=== PATIENT | male | born 1980 | race Caucasian/White ===

== ENCOUNTER 2024-07-03 09:24 | Inpatient (IN) | payer BC ==
[~2024-07-03] VITALS: Ht 175.3 cm; Wt 128.0 kg
[2024-07-03] VITALS (461 sets, daily range): BP systolic 122–152; BP diastolic 65–101; PULSE 86–121; TEMP 97.5–98; O2SAT 44–100
[~2024-07-03 09:24] MED LIST: ANTIINFLAMMATORY MED; MEPERIDINE HCL50 MG PO; MOBIC15 MG PO; VICODIN 5/5001 UDTAB PO
[2024-07-03] MEDS ORDERED: Ondansetron 4 MG/2 ML VIAL IV ONE (09:45)
[2024-07-03] MEDS ORDERED: NS 1,000 ML IV ONE (09:45)
[2024-07-03] MEDS ORDERED: dexAMETHasone 10 MG/ML VIAL IV ONE (09:45)
[2024-07-03] MEDS ORDERED: Meclizine 25 MG TAB PO ONE (09:45)
[2024-07-03 10:16] LABS: ALBUMIN 4.3 g/dL (3.5-5.0); BILIRUBIN,TOTAL 0.4 mg/dL (0.2-1.2); CALCIUM 9.4 mg/dL (8.4-10.2); CREATININE, serum 1.28 mg/dL (0.72-1.25); MAGNESIUM 1.7 mg/dL (1.6-2.6); POTASSIUM 3.4 mEq/L (3.5-4.5); TOTAL PROTEIN 7.6 g/dl (6.2-8.1)
[2024-07-03 10:21] LABS: HEMATOCRIT 47.5 % (42.0-52.0); MEAN CELL VOLUME 86 fl (80.0-100.0); MEAN CORPUSCULAR HEMOGLOBIN 29 pg (27-31); MEAN CORPUSCULAR HGB CONC 34 g/dl (33.0-37.0); MEAN PLATELET VOLUME 9.4 fl (7.4-10.4); PLATELET COUNT 331 K/mm3 (130-400); RED BLOOD COUNT 5.51 M/mm3 (4.20-5.60); REDCELL DISTRIBUTION WIDTH-CV 12.9 % (11.5-14.5)
[2024-07-03] MEDS ORDERED: dilTIAZem 25 MG/5 ML VIAL IV ONE (10:30)
[2024-07-03 11:00] LABS: BAND 3 % (0-10); EOSINOPHIL 3 % (0-4); LYMPHOCYTE 36 % (20.0-51.0); NEUTROPHILS 52 % (42.0-75.2); PLATELET ESTIMATE NORMAL (NORMAL)
[2024-07-03] MEDS ORDERED: Iohexol 300 - 100 ML VIAL IV ONE (11:25)
[2024-07-03] MEDS ORDERED: Enoxaparin 120 MG/0.8 ML SYRINGE SQ ONE (12:30)
[2024-07-03] MEDS ORDERED: Ondansetron 4 MG/2 ML VIAL IV PRN (12:30)
[2024-07-03] MEDS ORDERED: Acetaminophen 325 MG TAB PO PRN (12:30)
--- NOTE | 2024-07-03 12:59 | NUR ---
PATIENT ARRIVED FROM ER. SAAD TEE GAVE BEDSIDE REPORT. PATIENT TRANSFERRED FROM ER STRETCHER TO ICU BED. PATIENT HOOKED UP TO VITALS AND TELEMETRY MACHINE. PATIENT RESTING COMFORTABLY WITH AT BEDSIDE. BED IN LOW, CALL LIGHT WITHIN REACH.
[2024-07-03] MEDS ORDERED: 1/2 NS 1,000 ML IV SCH (13:00)
[2024-07-03] MEDS ORDERED: Magnesium Sulfate 4% 50 ML IV ONE (13:15)
[2024-07-03] MEDS ORDERED: Lidocaine PF 2% (20 MG/ML) 5 ML VIAL ONE (13:56)
[2024-07-03 14:05] LABS: COLLECTION METHOD CLEAN CATCH
[2024-07-03 14:14] LABS: URINE APPEARANCE CLEAR (CLEAR/HAZY); URINE COLOR YELLOW (YELLOW)
[2024-07-03 14:15] LABS: URINE BLOOD TRACE-INTACT (NEGATIVE); URINE GLUCOSE NEGATIVE (NEGATIVE); URINE KETONE Negative (NEGATIVE); URINE PROTEIN(semi-quant) NEGATIVE (BEGATIVE)
[2024-07-03 14:16] LABS: URINE NITRATE NEGATIVE (NEGATIVE); URINE UROBILINOGEN 0.2 E.U/dL (0.2-1.0)
[2024-07-03] MEDS ORDERED: Scopolamine 1 MG Delivered 3-Day PATCH TD ONE (14:30)
--- NOTE | 2024-07-03 15:23 | NUR ---
PT CAME AND WORKED WITH PATIENT, TRYING TO TREAT THE PATIENT'S [place]. PATIENT TOLERATED THE PROCEDURE FOR THE MAJORITY OF THE TIME. COUPLE OF MOVEMENTS CAUSED THE PATIENT TO VOMIT. PATIENT IS BACK IN BED, BED IN LOW POSITION, AND CALL LIGHT WITHIN REACH.
[2024-07-03] MEDS ORDERED: Clindamycin 150 MG CAP PO SCH (16:00)
[2024-07-03] MEDS ORDERED: Potassium Bicarbonate/Citrate 20 MEQ Effervescent TAB PO SCH (16:45)
[2024-07-03] MEDS ORDERED: *Potassium Replacement Protocol MC SCH (16:45)
--- NOTE | 2024-07-03 17:17 | NUR ---
PATIENT JUST RECIEVED DINNER TRAY, BUT STATES THAT HE IS NOT HUNGRY AT THIS TIME. DINNER TRAY LEFT ON BEDSIDE TABLE FOR SNACKING WHEN CONVIENENT FOR THE PATIENT. PATIENT COMFORTABLE, BED IN LOW POSITION, HEAD OF BED ELEVATED, AND CALL LIGHT WITHIN REACH.
--- NOTE | 2024-07-03 20:58 | NUR ---
NOC OX STARTED AT 2045. PT STARTED ON RA, SATTING 94%.
--- NOTE | 2024-07-03 23:04 | NUR ---
PT PLACED ON 1L TO MAINTAIN OXYGEN SATURATIONS ABOVE 88%.
[2024-07-04] VITALS (920 sets, daily range): BP systolic 105–124; BP diastolic 65–87; PULSE 64–74; TEMP 97.9–98.3; O2SAT 86–100
[2024-07-04 05:45] LABS: BASO % 0.1 % (0.0-2.0); EOS % 0.2 % (0.0-4.0); GRAN # 15.7 K/mm3 (1.4-6.5); GRAN % 81.9 % (42.2-75.2); HEMATOCRIT 42.5 % (42.0-52.0); HEMOGLOBIN 14.8 g/dl (13.5-18.0); LYMPH # 1.9 K/mm3 (1.2-3.4); LYMPH % 9.9 % (20.0-51.0); MEAN CELL VOLUME 85 fl (80.0-100.0); MEAN CORPUSCULAR HEMOGLOBIN 30 pg (27-31); MEAN CORPUSCULAR HGB CONC 35 g/dl (33.0-37.0); MEAN PLATELET VOLUME 9.3 fl (7.4-10.4); MONO # 1.4 K/mm3 (0.1-0.6); MONO % 7.2 % (1.7-9.3); PLATELET COUNT 282 K/mm3 (130-400); RED BLOOD COUNT 4.98 M/mm3 (4.20-5.60); REDCELL DISTRIBUTION WIDTH-CV 13.2 % (11.5-14.5)
[2024-07-04 06:08] LABS: CALCIUM 9.5 mg/dL (8.4-10.2); CHOLESTEROL RISK RATIO 6.8; CREATININE, serum 1.07 mg/dL (0.72-1.25); MAGNESIUM 2.1 mg/dL (1.6-2.6); POTASSIUM 4.6 mEq/L (3.5-4.5)
[2024-07-04 06:28] LABS: THYROID STIMULATING HORMONE 0.722 uIU/mL (0.350-4.940)
--- NOTE | 2024-07-04 07:11 | NUR ---
Report received from SAAD Salinas. Pt had uneventful night. Pt in NSR in the 60s. BP is stable. Pt resting on 2L O2 while he sleeps. INTx2, both saline locked. Call light within reach. Will continue with POC.
--- NOTE | 2024-07-04 08:00 | NUR ---
Pt denies any nausea at this time. Pt has nystagmus when looking to right side. Pt does c/o vertigo while at rest.
--- NOTE | 2024-07-04 08:53 | NUR ---
[facility] met with patient and his , Estella, P# [phone], to discuss discharge planning. Patient reports to live just outside of [place]. Patient does not currently have a [facility] but [facility]. [facility] No issues affording medications, patient reports he is allergic to amoxicillin and penicillin. Insurance is [employer]. No DPOA-HC and not interested in completing one at this time. No DME. Patient reports to be independent with ADLS. Patient would like to return home at time of discharge. Discharge plan: Home
--- NOTE | 2024-07-04 10:12 | NUR ---
Pt left floor for MRI.
[2024-07-04] MEDS ORDERED: Gadoterate 20 ML VIAL IV ONE (10:54)
--- NOTE | 2024-07-04 10:59 | NUR ---
Pt returned to room fro MRI
--- NOTE | 2024-07-04 18:42 | NUR ---
Pt had uneventful shift. Pt c/o vertigo but no nausea during shift. Pt has incision to left chest from loop recorder placement. Dressing CDI. Pt states the site is sore but not painful. Call light remains in reach.
--- NOTE | 2024-07-04 19:30 | NUR ---
Received report from SAAD Blanchard. Patient resting quietly in bed watching TV. at bedside. Vitals within normal limits. Patient denies pain or discomfort. Reports feeling some dizziness when turning head to the right side but otherwise denies feelings of vertigo. Loop recorder site to left chest is clean, dry, and intact.
[2024-07-04] MEDS ORDERED: Atorvastatin 40 MG TAB PO SCH (21:00)
[2024-07-05] VITALS (379 sets, daily range): BP systolic 97–140; BP diastolic 54–86; PULSE 53–64; TEMP 97.9–98; O2SAT 78–100
[2024-07-05 05:41] LABS: BASO # 0.1 K/mm3 (0.0-0.2); BASO % 0.4 % (0.0-2.0); EOS # 0.1 K/mm3 (0.0-0.7); EOS % 0.3 % (0.0-4.0); GRAN # 8.6 K/mm3 (1.4-6.5); GRAN % 59.7 % (42.2-75.2); HEMATOCRIT 44.4 % (42.0-52.0); HEMOGLOBIN 14.9 g/dl (13.5-18.0); LYMPH # 4.6 K/mm3 (1.2-3.4); LYMPH % 31.8 % (20.0-51.0); MEAN CELL VOLUME 88 fl (80.0-100.0); MEAN CORPUSCULAR HEMOGLOBIN 30 pg (27-31); MEAN CORPUSCULAR HGB CONC 34 g/dl (33.0-37.0); MEAN PLATELET VOLUME 9.3 fl (7.4-10.4); MONO % 7.2 % (1.7-9.3); PLATELET COUNT 277 K/mm3 (130-400); RED BLOOD COUNT 5.04 M/mm3 (4.20-5.60); REDCELL DISTRIBUTION WIDTH-CV 13.3 % (11.5-14.5)
[2024-07-05 05:59] LABS: CALCIUM 9.4 mg/dL (8.4-10.2); CREATININE, serum 1.29 mg/dL (0.72-1.25); POTASSIUM 3.9 mEq/L (3.5-4.5)
--- NOTE | 2024-07-05 07:30 | NUR ---
Report received from SAAD Catherine. Reviewed overnight events. Pt independent in bed and resting comfortably. HR is SB with rates in the high 40s to low 50s. Pt resting on room air. No IVF infusing at this time. Call light within reach. Will conitnue with POC.
[2024-07-05] MEDS ORDERED: Clindamycin 150 MG CAP PO SCH (10:01)
[2024-07-05] MEDS ORDERED: LIPITOR 40MG TA40 MG PO (11:00)
[2024-07-05] MEDS ORDERED: BETAPACE 80MG80 MG PO (11:01)
[2024-07-05] MEDS ORDERED: ASPIRIN 81M81 MG/TA2 PO (11:01)
[2024-07-05] MEDS ORDERED: CLEOCIN HC150 MG/CAP PO (11:02)
[2024-07-05] MEDS ORDERED: Cleocin PO (11:02)
[2024-07-05] MEDS ORDERED: TRANSDERM-0.5 MG/21 TD (11:03)
[2024-07-05] MEDS ORDERED: ANTIVERT 25MG25 MG PO (11:04)
[2024-07-05] MEDS ORDERED: Scopolamine 1 MG Delivered 3-Day PATCH TD ONE (11:45)
--- NOTE | 2024-07-05 12:12 | NUR ---
harvest worker attended interdisciplinary clinical rounding with Dr. Hager. Patient is medically ready for discharge. Patient will need an appointment scheduled with PCP within a week for follow up and needs nocturnal oxygen ordered. EMILEE met with patient and his whom expressed they did not have a preference on male or female doctor but would like to go to [facility]. EMILEE contacted [facility] and was able to get patient established with Edson Olivier. Hospital follow up appointment is scheduled for July 07 at 11:20 AM, A nurse will call patient on July 26 at 330 pm and he will have his official new patient appointment on September 22 at 1040 am. EMILEE set up oxygen order at [facility] and secure emailed the orders to their facility. SW notified patient and his of the above appointments and the oxygen would be delivered today. EMILEE confirmed patient's address and patient's P# [phone]. Patient and would like to potato picker oxygen if possible. EMILEE contacted [facility] and confirmed patient and his could potato picker oxygen in 30 minutes to an hour. EMILEE notified patient, patient's and patient's nurse. Emilee contacted [facility] and confirmed they have the correct phone number. EMILEE contacted admissions and updated patient's information for any future admissions. Discharge plan: Home with nocturnal oxygen
--- NOTE | 2024-07-05 12:20 | NUR ---
Discharge instructions provided. Reveiwed follow up appoinments and stressed importance of following up as ordered. Reviewed s/s of infection for loop recorder and when to notify provider. Reviewed new medications. All questions answered. Reviewed s/s of stroke NTx2 disconinued. Pt escorted out via wheelchair at 1205.
== END 2024-07-05 12:05 | disposition home or self-care (01) | DRG 261 ==
LOC: COL.ER 09:24 → ICU 12:52
PROVIDERS: Emergency Medicine; ADMIT Internal Medicine
PROC: 0JH602Z Insertion of Monitoring Device into Chest Subcutaneous Tissue and Fascia, Open Approach (ICD-10-PCS; principal; 2024-07-04)
DX: I48.0 Paroxysmal atrial fibrillation (principal); N17.9 Acute kidney failure, unspecified; Z68.41 Body mass index [BMI] 40.0-44.9, adult; I10 Essential (primary) hypertension; E66.9 Obesity, unspecified; G47.33 Obstructive sleep apnea (adult) (pediatric); E87.6 Hypokalemia; E83.42 Hypomagnesemia; G40.909 Epilepsy, unspecified, not intractable, without status epilepticus; R73.9 Hyperglycemia, unspecified; I44.0 Atrioventricular block, first degree; J30.2 Other seasonal allergic rhinitis; E78.1 Pure hyperglyceridemia; R09.02 Hypoxemia; Z88.0 Allergy status to penicillin
CPT/HCPCS: A9575; C1764; J1100; J1650; J2405; J2704; J3475; J7030; Q9967